=== PATIENT | male | born 1950 | race Caucasian/White ===

== ENCOUNTER 2023-04-28 09:01 | Observation (INO) ==
--- NOTE | 2023-04-28 09:08 | Emergency Department Note ---
Impression & Plan Hyponatremia, Dizziness, Leukocytosis, Chronic myeloid leukemia, Total bilirubin, elevated ED Provider Note NAME: RUTH ANN VILLALBA AGE: 72 SEX: M ARRIVES VIA: Ambulance INFORMANT: Patient ED PROVIDER(S): Romulo Vaughn MD CHIEF COMPLAINT: Dizziness PLAN: Disposition: Admit MEDICAL DECISION MAKING: The patient is a pleasant 72-year-old gentleman with a past medical history of leukemia undergoing chemotherapy who presents to the emergency department via EMS for generalized weakness and lightheadedness which has been ongoing since yesterday evening. Patient reports he had a episode of nausea and vomiting this morning as well. He denies any cough, congestion, chest pain, shortness of breath, diarrhea or urinary symptoms. On arrival emergency department the patient is fatigued appearing but no acute distress, afebrile stable vital signs. He appears clinically dry. He has no focal logic deficits. EKG without overt acute ischemia. CXR negative for acute cardiopulmonary process. WBC 12.2K with neutrophil predominance and slight left shift. H/H similar to prior. Platelets within normal limits. Chemistry without metabolic acidosis. Sodium is noted to be low at 127 with osmolality 271 and urine osmolality of 507 and urine sodium of 93 raising suspicion for possible component of SIADH. Total bilirubin 1.8 with direct bilirubin 0.3 and LFTs otherwise normal and so nonspecific. High-sensitivity troponin 6.5, within normal limits. Lipase not elevated. TSH 1.8, within normal limits. UA without convincing evidence of infection. Respiratory viral panel/[employer] was negative. CT of the abdomen pelvis was performed and was negative for acute pathology. Upon evaluation the patient reported feeling somewhat improved but still feeling dizzy. Thus, given his hyponatremia he agrees with admission at this time. Case was discussed with Dr. Lee, [facility] hospitalist, who will evaluate the patient for admission. Triage Nursing notes reviewed and agree them. Prior/outside medical records reviewed Vital Signs: reviewed Differential diagnosis: Benign positional vertigo, dehydration, hypovolemia, anemia, tumor, infection, hypoglycemia, electrolyte abnormalities, cardiac sources, intracerebral event, toxicologic, neurologic, as well as other pathologies. ER treatment provided: See below. Diagnostics interpreted by me: ECG: Normal sinus rhythm, 68 bpm, no ectopy, no overt ST elevation or depression, QTc 435, QRS 98 Cardiac Monitoring: An order for continuous cardiac monitoring was placed and demonstrated Normal sinus rhythm, 68 bpm, no ectopy. Laboratory studies: See below Imaging studies: See below Consultation(s): Case was discussed with Dr. Lee, [facility] hospitalist, who will evaluate the patient for admission. HPI: The patient is a pleasant 72-year-old gentleman with a past medical history of leukemia undergoing chemotherapy who presents to the emergency department via EMS for generalized weakness and lightheadedness which has been ongoing since yesterday evening. Patient reports he had a episode of nausea and vomiting this morning as well. He denies any cough, congestion, chest pain, shortness of breath, diarrhea or urinary symptoms. ROS: See above HPI for pertinent positives & negatives. A total of 10 systems reviewed and were otherwise negative. VITALS:See Below PHYSICAL EXAMINATION: GENERAL: Awake, alert, fatigued-appearing, in no distress HENT: Normocephalic, atraumatic. Oropharynx with dry mucous membranes and otherwise unremarkable. EYES: Normal conjunctiva. Sclera non-icteric. NECK: Supple. No nuchal rigidity. FROM. No JVD. RESPIRATORY: Clear to auscultation. CARDIAC: Regular rate, normal rhythm. Extremities warm and well perfused. Pulses equal. ABDOMEN: Soft, non-distended. No tenderness to palpation. No rebound or guarding. No masses. RECTAL: Deferred. MUSCULOSKELETAL: Chest examination reveals no tenderness. The back is sy mmetrical on inspection without obvious abnormality. There is no CVA tenderness to palpation. No joint edema. LOWER EXTREMITIES: Calves are equal size bilaterally and non-tender. No edema. No discoloration. NEURO: No sensory or motor deficits noted. 5/5 strength and SILT x 4 extremities. SKIN: No rash or jaundice noted. Romulo Vaughn MD Past Med/Surg History Medical History Chronic myeloid leukemia History of prostate cancer Hyperlipidemia Hypertension Surgical History H/O prostatectomy History of colonoscopy History of surgery on lower extremity as a child after broken bone Social History Smoking Status: Never smoker Second Hand Exposure: No; Do You Dip or Chew Tobacco: No; Tobacco Cessation Education Requested by Patient: No Hx Alcohol Use: No Hx Substance Use: No Preferred Language: Kazakh Communication Ability: Effective Putty Glazer Required: No Beliefs That Will Affect Care: None Current Living Situation: Spouse Other Information That Helps Us Care for You: No Feels Safe at Home: Yes Safety Concerns: Feels Safe At This Time Assistive Devices: Glasses Allergies Allergies Allergy/AdvReac Type Severity Reaction Status Date / Time No Known Drug Allergies Allergy Verified 11/21/22 09:48 Home Meds Home Medications Medication Instructions Recorded Confirmed ascorbic acid (vitamin C) 500 mg 500 mg PO DAILY 11/21/22 04/28/23 tablet (Vitamin C) atorvastatin 40 mg tablet 40 mg PO DAILY 11/21/22 04/28/23 calcium carbonate 600 mg calcium 600 mg PO DAILY 11/21/22 04/28/23 (1,500 mg) tablet (Calcium) cholecalciferol (vitamin D3) 25 25 mcg PO DAILY 11/21/22 04/28/23 mcg (1,000 unit) capsule (Vitamin D3) ferrous sulfate 27 mg iron tablet 27 mg PO DAILY 11/21/22 04/28/23 lisinopril 20 mg tablet 20 mg PO DAILY 11/21/22 04/28/23 multivitamin 1 tab PO DAILY 11/21/22 04/28/23 travoprost 0.004 % eye drops 1 drp ophthalmic (eye) PM 11/21/22 04/28/23 (Travatan Z) vitamin B complex 1 cap PO DAILY 11/21/22 04/28/23 acyclovir 400 mg tablet 400 mg PO BID PRN other 04/28/23 04/28/23 dexamethasone 4 mg tablet See Rx Instructions .Route .COMPLEX 04/28/23 04/28/23 ondansetron HCl 8 mg tablet See Rx Instructions .Route 04/28/23 04/28/23 .COMPLEX PRN Nausea prochlorperazine maleate 10 mg See Rx Instructions .Route 04/28/23 04/28/23 tablet .COMPLEX PRN Nausea Results & Data (ED) Vital Signs Vital Signs - 24 hr 04/28/23 09:09 04/28/23 09:12 04/28/23 09:22 Temperature 37.2 C Temperature Source Oral Pulse Rate - Lying Pulse Rate - Sitting Pulse Rate - Standing Pulse Rate 69 69 Pulse Rate [Apical] Respiratory Rate 16 Respiratory Effort / Characteristics Non-Labored Respiratory Depth Normal Blood Pressure - Lying Blood Pressure - Sitting Blood Pressure- Standing Blood Pressure 105/68 Blood Pressure [Right Arm] Blood Pressure Mean 80 Blood Pressure Mean [Right Arm] Pulse Oximetry 98 96 Oxygen Delivery Method Room Air Room Air Sepsis Recent Fever Within 48 Hours No Sepsis New/Unexplained Change in Mental Status No Sepsis Action Taken by Nursing No Action Required 04/28/23 09:45 04/28/23 10:25 04/28/23 11:00 Temperature Temperature Source Pulse Rate - Lying 78 Pulse Rate - Sitting 75 Pulse Rate - Standing 80 Pulse Rate Pulse Rate [Apical] 68 71 Respiratory Rate 16 18 Respiratory Effort / Characteristics Non-Labored Respiratory Depth Normal Blood Pressure - Lying 115/70 Blood Pressure - Sitting 116/76 Blood Pressure- Standing 111/65 Blood Pressure Blood Pressure [Right Arm] 119/71 111/65 Blood Pressure Mean Blood Pressure Mean [Right Arm] 87 80 Pulse Oximetry 94 97 Oxygen Delivery Method Room Air Sepsis Recent Fever Within 48 Hours Sepsis New/Unexplained Change in Mental Status Sepsis Action Taken by Nursing 04/28/23 13:05 Temperature Temperature Source Pulse Rate - Lying Pulse Rate - Sitting Pulse Rate - Standing Pulse Rate 74 Pulse Rate [Apical] Respiratory Rate Respiratory Effort / Characteristics Respiratory Depth Blood Pressure - Lying Blood Pressure - Sitting Blood Pressure- Standing Blood Pressure Blood Pressure [Right Arm] Blood Pressure Mean Blood Pressure Mean [Right Arm] Pulse Oximetry Oxygen Delivery Method Sepsis Recent Fever Within 48 Hours Sepsis New/Unexplained Change in Mental Status Sepsis Action Taken by Nursing Laboratory Data Attestation: I reviewed the patient's lab results. 04/28/23 09:15 04/28/23 09:15 Lab Results 04/28/23 04/28/23 04/28/23 Range/Units 09:15 09:15 09:15 WBC 12.21 H (4.8-10.8) K/ul RBC 3.86 L (4.70-6.10) M/uL Hgb 11.9 L (14.0-18.0) g/dl Hct 35.3 L (42.0-52.0) % MCV 91.5 (80.0-100.0) fL MCH 30.8 (25.0-34.0) pg MCHC 33.7 (32.0-36.0) g/dL RDW Std Deviation 65.9 H (36.4-46.3) fL RDW Coeff of Ivan 19.9 H (11.5-14.5) % Plt Count 165 (130-400) K/uL MPV 9.7 (9.4-12.4) fL Immature Gran % (Auto) 3.2 % Neut % (Auto) 84.2 % Lymph % (Auto) 8.4 % Millard % (Auto) 3.8 % Eos % (Auto) 0.2 % Baso % (Auto) 0.2 % Neut # (Auto) 10.28 H (1.40-6.50) K/uL Lymph # (Auto) 1.02 L (1.2-3.4) K/uL Millard # (Auto) 0.47 (0.11-0.59) K/uL Eos # (Auto) 0.03 (0-0.50) K/uL Baso # (Auto) 0.02 (0-0.2) K/uL Immature Gran # (Auto) 0.39 H (0.01-0.20) K/uL Absolute Nucleated RBC 0.02 (0-0.12) K/uL Nucleated RBC % (auto) 0.2 % Sodium 127 L (136-145) mmol/L Potassium 3.7 (3.5-5.1) mmol/L Chloride 92 L (98-107) mmol/L Carbon Dioxide 30 (21-32) mmol/L Anion Gap 5 (3-11) BUN 18 (6-23) mg/dl Creatinine 0.98 (0.6-1.4) mg/dl Est Cr Clr Drug Dosing Not Reportable Est GFR ( Amer) 88.3 ml/min Est GFR (Non-Af Amer) 76.2 ml/min BUN/Creatinine Ratio 18.4 (10-20) Glucose 113 H (70-99(Fasting)) mg/dl Osmolality (280-300) mOsm/kg Calcium 8.8 (8.6-10.3) mg/dl Phosphorus 3.2 (2.5-4.9) mg/dl Magnesium 1.9 (1.7-2.4) mg/dl Total Bilirubin 1.8 H (0.2-1.0) mg/dl Direct Bilirubin 0.3 H (0-0.2) mg/dl AST 13 (13-39) U/L ALT 15 (7-52) U/L Alkaline Phosphatase 58 (34-104) U/L Troponin I High Sens 6.5 (0-20) pg/ml Total Protein 6.3 (6.0-8.3) gm/dl Albumin 3.6 (3.4-5.0) gm/dl Globulin 2.7 (2.5-4.0) gm/dl Albumin/Globulin Ratio 1.3 (0.9-2) Lipase 34 (11-82) U/L TSH 1.851 (0.300-4.500) uIu/ml Urine Color Urine Appearance (Clear) Urine pH (4.5-7.5) Ur Specific Mcfarlan (1.000-1.030) Urine Protein (Negative) Urine Glucose (UA) (Negative) Urine Ketones (Negative) Urine Blood (Negative) Urine Nitrite (Negative) Urine Bilirubin (Negative) Urine Urobilinogen (Negative) Ur Leukocyte Esterase (Negative) Urine WBC (Auto) (0-5) /hpf Urine RBC (Auto) (0-4) /hpf U Hyaline Cast (Auto) (0-5) /lpf U Epithel Cells (Auto) (0-5) /lpf Urine Bacteria (Auto) (Negative) Urine Osmolality (500-800) mOsm/kg Ur Random Sodium mmol/L Adenovirus (PCR) (NotDetected) B. pertussis DNA (PCR) (NotDetected) B.parapertussis DNA PCR (NotDetected) C. pneumoniae DNA (PCR) (NotDetected) Coronavirus OC43 (PCR) (NotDetected) Coronavirus HKU1 (PCR) (NotDetected) Coronavirus 229E (PCR) (NotDetected) SARS-CoV-2 (PCR) (NotDetected) Coronavirus NL63 (PCR) (NotDetected) Human Metapneumovir PCR (NotDetected) Influenza Type A (PCR) (NotDetected) Influenza Type B (PCR) (NotDetected) M. pneumoniae (PCR) (NotDetected) Parainfluenza 1 (PCR) (NotDetected) Parainfluenza 2 (PCR) (NotDetected) Parainfluenza 3 (PCR) (NotDetected) Parainfluenza 4 (PCR) (NotDetected) RSV (PCR) (NotDetected) Entero/Rhino (PCR) (NotDetected) 04/28/23 04/28/23 04/28/23 Range/Units 10:13 10:26 10:26 WBC (4.8-10.8) K/ul RBC (4.70-6.10) M/uL Hgb (14.0-18.0) g/dl Hct (42.0-52.0) % MCV (80.0-100.0) fL MCH (25.0-34.0) pg MCHC (32.0-36.0) g/dL RDW Std Deviation (36.4-46.3) fL RDW Coeff of Ivan (11.5-14.5) % Plt Count (130-400) K/uL MPV (9.4-12.4) fL Immature Gran % (Auto) % Neut % (Auto) % Lymph % (Auto) % Millard % (Auto) % Eos % (Auto) % Baso % (Auto) % Neut # (Auto) (1.40-6.50) K/uL Lymph # (Auto) (1.2-3.4) K/uL Millard # (Auto) (0.11-0.59) K/uL Eos # (Auto) (0-0.50) K/uL Baso # (Auto) (0-0.2) K/uL Immature Gran # (Auto) (0.01-0.20) K/uL Absolute Nucleated RBC (0-0.12) K/uL Nucleated RBC % (auto) % Sodium (136-145) mmol/L Potassium (3.5-5.1) mmol/L Chloride (98-107) mmol/L Carbon Dioxide (21-32) mmol/L Anion Gap (3-11) BUN (6-23) mg/dl Creatinine (0.6-1.4) mg/dl Est Cr Clr Drug Dosing Est GFR ( Amer) ml/min Est GFR (Non-Af Amer) ml/min BUN/Creatinine Ratio (10-20) Glucose (70-99(Fasting)) mg/dl Osmolality 271 L (280-300) mOsm/kg Calcium (8.6-10.3) mg/dl Phosphorus (2.5-4.9) mg/dl Magnesium (1.7-2.4) mg/dl Total Bilirubin (0.2-1.0) mg/dl Direct Bilirubin (0-0.2) mg/dl AST (13-39) U/L ALT (7-52) U/L Alkaline Phosphatase (34-104) U/L Troponin I High Sens (0-20) pg/ml Total Protein (6.0-8.3) gm/dl Albumin (3.4-5.0) gm/dl Globulin (2.5-4.0) gm/dl Albumin/Globulin Ratio (0.9-2) Lipase (11-82) U/L TSH (0.300-4.500) uIu/ml Urine Color Yellow Urine Appearance Turbid A (Clear) Urine pH 8.0 H (4.5-7.5) Ur Specific Mcfarlan 1.015 (1.000-1.030) Urine Protein Negative (Negative) Urine Glucose (UA) Negative (Negative) Urine Ketones Negative (Negative) Urine Blood Negative (Negative) Urine Nitrite Negative (Negative) Urine Bilirubin Negative (Negative) Urine Urobilinogen Negative (Negative) Ur Leukocyte Esterase Negative (Negative) Urine WBC (Auto) 1-5 (0-5) /hpf Urine RBC (Auto) 0-4 (0-4) /hpf U Hyaline Cast (Auto) 0 (0-5) /lpf U Epithel Cells (Auto) 5-10 H (0-5) /lpf Urine Bacteria (Auto) Negative (Negative) Urine Osmolality (500-800) mOsm/kg Ur Random Sodium mmol/L Adenovirus (PCR) Not Detected (NotDetected) B. pertussis DNA (PCR) Not Detected (NotDetected) B.parapertussis DNA PCR Not Detected (NotDetected) C. pneumoniae DNA (PCR) Not Detected (NotDetected) Coronavirus OC43 (PCR) Not Detected (NotDetected) Coronavirus HKU1 (PCR) Not Detected (NotDetected) Coronavirus 229E (PCR) Not Detected (NotDetected) SARS-CoV-2 (PCR) Not Detected (NotDetected) Coronavirus NL63 (PCR) Not Detected (NotDetected) Human Metapneumovir PCR Not Detected (NotDetected) Influenza Type A (PCR) Not Detected (NotDetected) Influenza Type B (PCR) Not Detected (NotDetected) M. pneumoniae (PCR) Not Detected (NotDetected) Parainfluenza 1 (PCR) Not Detected (NotDetected) Parainfluenza 2 (PCR) Not Detected (NotDetected) Parainfluenza 3 (PCR) Not Detected (NotDetected) Parainfluenza 4 (PCR) Not Detected (NotDetected) RSV (PCR) Not Detected (NotDetected) Entero/Rhino (PCR) Not Detected (NotDetected) 04/28/23 04/28/23 Range/Units 10:26 10:26 WBC (4.8-10.8) K/ul RBC (4.70-6.10) M/uL Hgb (14.0-18.0) g/dl Hct (42.0-52.0) % MCV (80.0-100.0) fL MCH (25.0-34.0) pg MCHC (32.0-36.0) g/dL RDW Std Deviation (36.4-46.3) fL RDW Coeff of Ivan (11.5-14.5) % Plt Count (130-400) K/uL MPV (9.4-12.4) fL Immature Gran % (Auto) % Neut % (Auto) % Lymph % (Auto) % Millard % (Auto) % Eos % (Auto) % Baso % (Auto) % Neut # (Auto) (1.40-6.50) K/uL Lymph # (Auto) (1.2-3.4) K/uL Millard # (Auto) (0.11-0.59) K/uL Eos # (Auto) (0-0.50) K/uL Baso # (Auto) (0-0.2) K/uL Immature Gran # (Auto) (0.01-0.20) K/uL Absolute Nucleated RBC (0-0.12) K/uL Nucleated RBC % (auto) % Sodium (136-145) mmol/L Potassium (3.5-5.1) mmol/L Chloride (98-107) mmol/L Carbon Dioxide (21-32) mmol/L Anion Gap (3-11) BUN (6-23) mg/dl Creatinine (0.6-1.4) mg/dl Est Cr Clr Drug Dosing Est GFR ( Amer) ml/min Est GFR (Non-Af Amer) ml/min BUN/Creatinine Ratio (10-20) Glucose (70-99(Fasting)) mg/dl Osmolality (280-300) mOsm/kg Calcium (8.6-10.3) mg/dl Phosphorus (2.5-4.9) mg/dl Magnesium (1.7-2.4) mg/dl Total Bilirubin (0.2-1.0) mg/dl Direct Bilirubin (0-0.2) mg/dl AST (13-39) U/L ALT (7-52) U/L Alkaline Phosphatase (34-104) U/L Troponin I High Sens (0-20) pg/ml Total Protein (6.0-8.3) gm/dl Albumin (3.4-5.0) gm/dl Globulin (2.5-4.0) gm/dl Albumin/Globulin Ratio (0.9-2) Lipase (11-82) U/L TSH (0.300-4.500) uIu/ml Urine Color Urine Appearance (Clear) Urine pH (4.5-7.5) Ur Specific Mcfarlan (1.000-1.030) Urine Protein (Negative) Urine Glucose (UA) (Negative) Urine Ketones (Negative) Urine Blood (Negative) Urine Nitrite (Negative) Urine Bilirubin (Negative) Urine Urobilinogen (Negative) Ur Leukocyte Esterase (Negative) Urine WBC (Auto) (0-5) /hpf Urine RBC (Auto) (0-4) /hpf U Hyaline Cast (Auto) (0-5) /lpf U Epithel Cells (Auto) (0-5) /lpf Urine Bacteria (Auto) (Negative) Urine Osmolality 507 (500-800) mOsm/kg Ur Random Sodium 93 mmol/L Adenovirus (PCR) (NotDetected) B. pertussis DNA (PCR) (NotDetected) B.parapertussis DNA PCR (NotDetected) C. pneumoniae DNA (PCR) (NotDetected) Coronavirus OC43 (PCR) (NotDetected) Coronavirus HKU1 (PCR) (NotDetected) Coronavirus 229E (PCR) (NotDetected) SARS-CoV-2 (PCR) (NotDetected) Coronavirus NL63 (PCR) (NotDetected) Human Metapneumovir PCR (NotDetected) Influenza Type A (PCR) (NotDetected) Influenza Type B (PCR) (NotDetected) M. pneumoniae (PCR) (NotDetected) Parainfluenza 1 (PCR) (NotDetected) Parainfluenza 2 (PCR) (NotDetected) Parainfluenza 3 (PCR) (NotDetected) Parainfluenza 4 (PCR) (NotDetected) RSV (PCR) (NotDetected) Entero/Rhino (PCR) (NotDetected) Administered Medications Acyclovir (Acyclovir 400 Mg Tab) 400 mg PO BID REBECCA Stop: 04/30/23 20:59 Last Admin: 04/28/23 20:06 Dose: 400 mg Documented By: ENOC Enoxaparin Sodium (Enoxaparin Inj 40 Mg/0.4 Ml Syr) 40 mg SQ Q24H REBECCA Stop: 05/28/23 16:59 Last Admin: 04/28/23 18:53 Dose: 40 mg Documented By: JIM Sodium Chloride (Nss 1000ml) 1,000 mls @ 125 mls/hr IV .Q8H REBECCA Stop: 05/28/23 16:38 Last Admin: 04/28/23 17:13 Dose: 125 mls/hr Documented By: JIM Oxycodone/Acetaminophen (Oxycodone/Acetaminophen 5mg/325mg Tab) 2 tab PO Q4H PRN PRN Reason: Severe Pain (Scale 7, 8, 9,10) Stop: 05/12/23 16:38 Last Admin: 04/28/23 17:18 Dose: 2 tab Documented By: JIM Travoprost (Travoprost Z 0.004% Oph Soln 2.5 Ml Btl) 1 drops OPB PM REBECCA Stop: 05/28/23 20:59 Last Admin: 04/28/23 20:06 Dose: 1 drops Documented By: ENOC Discontinued Medications Sodium Chloride (Nss 1000ml) 1,000 mls @ 999 mls/hr IV .Q1H1M ONE Stop: 04/28/23 10:18 Last Infusion: 04/28/23 10:36 Dose: 0 mls/hr Documented By: Admin: 04/28/23 09:25 Dose: 999 mls/hr Documented By: NICK Famotidine (Pepcid 20mg Iv Push) 20 mg in 5 mls @ 2.5 mls/min IV NOW STA Stop: 04/28/23 09:57 Last Admin: 04/28/23 10:17 Dose: 2.5 mls/min Documented By: NICK Ioversol (Ioversol 350 Mg 125ml Prefilled Syringe) 94 ml IV ONCE ONE Stop: 04/28/23 11:45 Last Admin: 04/28/23 11:45 Dose: 94 ml Documented By: DEANNAK Ondansetron HCl (Ondansetron Inj 2 Mg/Ml 2 Ml Vial) 4 mg IV NOW STA Stop: 04/28/23 09:57 Last Admin: 04/28/23 10:16 Dose: 4 mg Documented By: NICK Imaging Data Radiologist's Impression: Chest X-Ray 04/28/23 09:18 XR chest 1V portable HISTORY: dizziness COMPARISON: Chest 03/18/2023. FINDINGS: There are low lung volumes. No pneumothorax. No pleural effusions. There is mild enlargement of the cardiac silhouette. This may be due to the low lung volumes. No focal lung consolidations to suggest a pneumonia. No evidence for pulmonary edema. IMPRESSION: Mild enlargement of the cardiac silhouette. This may be due to the low lung volu mes and AP portable technique. Otherwise, no acute process within the chest. ACT 112: Negative or not required by law. Electronically signed by: Samuel Webster M.D. 04/28/2023 10:00 AM Abdomen/Pelvis CT 04/28/23 11:[address] WITH IV CONTRAST CT DOSE: 1247.57 mGy.cm HISTORY: Nausea. Vomiting., dizziness, leukemia TECHNIQUE: Multiaxial CT images of the abdomen and pelvis were performed following the use of intravenous contrast. A dose lowering technique was utilized adhering to the principles of ALARA. COMPARISON STUDY: None. FINDINGS: There is a 5 mm subpleural nodule within the right middle lobe on image 20. Groundglass densities at the lung bases favor mild dependent change. Small focus of subcutaneous gas within the left lower quadrant abdominal wall favors prior medication injection. No pneumoperitoneum. No pneumatosis. No suspicious lytic or blastic osseous lesions. Severe degenerative disc disease at L4-5. Small fat-containing umbilical and supraumbilical hernias are noted. There is a 2.8 cm cyst within the left hepatic lobe. The main portal vein is patent. The gallbladder, pancreas, spleen, and adrenal glands are unremarkable. A 5 mm hypodense lesion within the right kidney is technically too small to characterize but statistically represents a cyst. Normal left kidney. No hydronephrosis. Calcified plaque within the normal caliber abdominal aorta. No retroperitoneal or pelvic lymphadenopathy. The bladder is decompressed resulting in suboptimal evaluation. However, no definite bladder wall thickening. No pelvic free fluid. Colonic diverticulosis. No evidence for acute diverticulitis. No bowel wall thickening or obstruction. Normal appendix. IMPRESSION: 1. No bowel wall thickening or obstruction. 2. Normal appendix. 3. Colonic diverticulosis. No evidence for acute diverticulitis. 4. A 5 mm right middle lobe pulmonary nodule. Please refer to the chart below for recommended follow-up. 5. Additional findings as described above. Please refer to below summary of Fleischner criteria recommendations for follow- up of incidental CT nodules (Kwesi Jenkins, Guidelines for management of small pulmonary nodules detected on CT scans: A statement from the Fleischner Society, Radiology 237: [phone].) SOLID NODULES Solitary nodule size: <6 mm * Low risk patients: no follow-up needed * high risk patients: optional CT at 12 months Solitary nodule size: 6-8 mm * Low risk patients: follow-up at 6-12 months, then consider further follow-up at 18-24 months * high risk patients: initial follow-up CT at 6-12 months and then at 18-24 months if no change Solitary nodule size: >8 mm * either low or high risk patients - consider follow-up CT at 3 months, and/or CT-PET, and/or biopsy Multiple nodules size: <6 mm * Low risk patients: no routine follow-up * high risk patients: optional CT at 12 months Multiple nodules size: 6-8 mm * Low risk patients: follow-up at 3-6 months, then consider further follow-up at 18-24 months * high risk patients: follow-up at 3-6 months, then at 18-24 months if no change Multiple nodules size: >8 mm * Low risk patients: follow-up at 3-6 months, then consider further follow-up at 18-24 months * high risk patients: follow-up at 3-6 months, then at 18-24 months if no change Note: newly detected indeterminate nodule in persons 35 years of age or older. * Low risk patients: minimal or absent history of smoking and/or other known risk factors * high risk patients: history of smoking or of other known risk factors (e.g. first degree relative with lung cancer, or exposure to asbestos, radon, uranium) * if a nodule up to 8 mm is partly solid or is ground glass further follow-up is required after 24 months to exclude possible slow growing adenocarcinoma (TONY) SUBSOLID NODULES Solitary pure ground-glass nodule * nodule size <6 mm - no CT follow-up required * nodule size >=6 mm - follow-up CT at 6-12 months, then every 2 years until 5 years Solitary part-solid nodule * nodule size <6 mm - no CT follow-up required * nodule size >=6 mm - follow-up CT at 3-6 months. If unchanged, and solid component remains <6 mm, then annual follow-up for 5 years Multiple subsolid nodules * nodule size <6 mm - follow-up CT at 3-6 months, consider further follow-up at 2 and 4 years if stable * nodule size >=6 mm - follow-up CT at 3-6 months, subsequent management based on the most suspicious nodule(s) ACT 112: Positive. There are findings on this exam that require communication between the performing entity and the patient following Patient Test Result Information Act ([place] Act 112) guidelines. Electronically signed by: Samuel Webster M.D. 04/28/2023 11:58 AM Discharge Plan Visit Data Chief Complaint: Dizziness ED Provider: Romulo Vaughn Discharge Problem: Hyponatremia, Dizziness, Leukocytosis, Chronic myeloid leukemia, Total bilirubin, elevated Patient Disposition: Admitted As Inpatient Discharge Instructions Interventions: ED Discharge Assessment Last Done: 04/28/23 16:39
[2023-04-28] MEDS ORDERED: SODIUM CHLORIDE 0.9% 1000ML 1,000 ML IV ONE (09:18)
[2023-04-28 09:36] LABS: Basophils # (auto) 0.02 K/uL (0-0.2); Basophils % (auto) 0.2 %; Eosinophils # (auto) 0.03 K/uL (0-0.50); Eosinophils % (auto) 0.2 %; Hematocrit (blood only) 35.3 % (42.0-52.0); Hemoglobin 11.9 g/dl (14.0-18.0); Immature Granulocytes # (auto) 0.39 K/uL (0.01-0.20); Immature Granulocytes % (auto) 3.2 %; Lymphocytes # (auto) 1.02 K/uL (1.2-3.4); Lymphocytes % (auto) 8.4 %; Mean Corpuscular Hemoglobin 30.8 pg (25.0-34.0); Mean Corpuscular Hgb Conc 33.7 g/dL (32.0-36.0); Mean Corpuscular Volume 91.5 fL (80.0-100.0); Mean Platelet Volume 9.7 fL (9.4-12.4); Monocytes # (auto) 0.47 K/uL (0.11-0.59); Monocytes % (auto) 3.8 %; Neutrophils # (auto) 10.28 K/uL (1.40-6.50); Neutrophils % (auto) 84.2 %; Nucleated RBC # (auto) 0.02 K/uL (0-0.12); Nucleated RBC % (auto) 0.2 %; Platelet Count 165 K/uL (130-400); RDW Coefficient of Variation 19.9 % (11.5-14.5); RDW Standard Deviation 65.9 fL (36.4-46.3); Red Blood Count 3.86 M/uL (4.70-6.10); White Blood Count 12.21 K/ul (4.8-10.8)
[2023-04-28] MEDS ORDERED: ONDANSETRON INJ 2 MG/ML 2 ML VIAL IV STA (09:56)
[2023-04-28] MEDS ORDERED: FAMOTIDINE 20MG IV PUSH 20 MG/5 ML SYR IV STA (09:56)
--- NOTE | 2023-04-28 10:02 | XRay Report ---
XR chest 1V portable HISTORY: dizziness COMPARISON: Chest 03/18/2023. FINDINGS: There are low lung volumes. No pneumothorax. No pleural effusions. There is mild enlargemen t of the cardiac silhouette. This may be due to the low lung volumes. No focal lung consolidations to suggest a pneumonia. No evidence for pulmonary edema. IMPRESSION: Mild enlargement of the cardiac silhouette. This may be due to the low lung volumes and AP portable t echnique. Otherwise, no acute process within the chest. ACT 112: Negative or not required by law. Electronically signed by: Samuel Webster M.D. 04/28/2023 10:00 AM
[2023-04-28 10:03] LABS: Alanine Aminotransferase 15 U/L (7-52); Albumin Globulin Ratio 1.3 (0.9-2); Albumin Level 3.6 gm/dl (3.4-5.0); Alkaline Phosphatase 58 U/L (34-104); Anion Gap 5 (3-11); Aspartate Aminotransferase 13 U/L (13-39); BUN Creatinine Ratio 18.4 (10-20); Bilirubin,Total 1.8 mg/dl (0.2-1.0); Blood Urea Nitrogen 18 mg/dl (6-23); Calcium 8.8 mg/dl (8.6-10.3); Carbon Dioxide 30 mmol/L (21-32); Chloride 92 mmol/L (98-107); Est GFR (African American) 88.3 ml/min; Est GFR (Non-African American) 76.2 ml/min; Globulin 2.7 gm/dl (2.5-4.0); Glucose 113 mg/dl (70-99(Fasting)); Lipase 34 U/L (11-82); Magnesium 1.9 mg/dl (1.7-2.4); Phosphorus 3.2 mg/dl (2.5-4.9); Potassium 3.7 mmol/L (3.5-5.1); Sodium 127 mmol/L (136-145); Total Protein 6.3 gm/dl (6.0-8.3)
[2023-04-28 10:10] LABS: Troponin I High Sensitivity 6.5 pg/ml (0-20)
[2023-04-28 10:46] LABS: Appearance Urine Turbid (Clear); Bacteria Urine Automated Negative (Negative); Bilirubin Urine Negative (Negative); Blood Urine Negative (Negative); Cast Urine Automated 0 /lpf (0-5); Color Urine Yellow; Glucose Urine UA Negative (Negative); Ketones Urine Negative (Negative); Leukocyte Esterase Urine Negative (Negative); Nitrite Urine Negative (Negative); Protein Urine Negative (Negative); RBC Urine Automated 0-4 /hpf (0-4); Specific Gravity Urine 1.015 (1.000-1.030); Urobilinogen Urine Negative (Negative)
[2023-04-28 11:43] LABS: Adenovirus PCR Not Detected (NotDetected); Bordetella parapertussis PCR Not Detected (NotDetected); Bordetella pertussis PCR Not Detected (NotDetected); Chlamydia pneumoniae PCR Not Detected (NotDetected); Coronavirus 229E PCR Not Detected (NotDetected); Coronavirus CoV-2 (COVID19)PCR Not Detected (NotDetected); Coronavirus HKU1 PCR Not Detected (NotDetected); Coronavirus NL63 PCR Not Detected (NotDetected); Coronavirus OC43PCR Not Detected (NotDetected); Human Metapneumovirus PCR Not Detected (NotDetected); Influenza A PCR Not Detected (NotDetected); Influenza B PCR Not Detected (NotDetected); Mycoplasma pneumoniae PCR Not Detected (NotDetected); Parainfluenza Virus 1 PCR Not Detected (NotDetected); Parainfluenza Virus 2 PCR Not Detected (NotDetected); Parainfluenza Virus 3 PCR Not Detected (NotDetected); Parainfluenza Virus 4 PCR Not Detected (NotDetected); Respiratory Syncytial VirusPCR Not Detected (NotDetected); Rhinovirus/Enterovirus PCR Not Detected (NotDetected)
[2023-04-28] MEDS ORDERED: IOVERSOL 350 MG 125mL Prefilled Syringe IV ONE (11:44)
--- NOTE | 2023-04-28 12:01 | CT Scan Report ---
ABDOMEN AND PELVIS CT WITH IV CONTRAST CT DOSE: 1247.57 mGy.cm HISTORY: Nausea. Vomiting., dizziness, leukemia TECHNIQUE: Multiaxial CT images of the abdomen and pelvis were performed following the use of intrave nous contrast. A dose lowering technique was utilized adhering to the principles of ALARA. COMPARISON STUDY: None. FINDINGS: There is a 5 mm subpleural nodule within the right middle lobe on image 20. Groundglass den sities at the lung bases favor mild dependent change. Small focus of subcutaneous gas within the left lower quadrant abdominal wall favors prior medication injection. No pneumoperitoneum. No pneumatosis . No suspicious lytic or blastic osseous lesions. Severe degenerative disc disease at L4-5. Small fat -containing umbilical and supraumbilical hernias are noted. There is a 2.8 cm cyst within the left he patic lobe. The main portal vein is patent. The gallbladder, pancreas, spleen, and adrenal glands are unremarkable. A 5 mm hypodense lesion within the right kidney is technically too small to characteri ze but statistically represents a cyst. Normal left kidney. No hydronephrosis. Calcified plaque withi n the normal caliber abdominal aorta. No retroperitoneal or pelvic lymphadenopathy. The bladder is de compressed resulting in suboptimal evaluation. However, no definite bladder wall thickening. No pelvi c free fluid. Colonic diverticulosis. No evidence for acute diverticulitis. No bowel wall thickening or obstruction. Normal appendix. IMPRESSION: 1. No bowel wall thickening or obstruction. 2. Normal appendix. 3. Colonic diverticulosis. No evidence for acute diverticulitis. 4. A 5 mm right middle lobe pulmonary nodule. Please refer to the chart below for recommended follow- up. 5. Additional findings as described above. Please refer to below summary of Fleischner criteria recommendations for follow-up of incidental CT n odules (Kwesi Jenkins, Guidelines for management of small pulmonary nodules detected on CT scans: A sta tement from the Fleischner Society, Radiology 237: [phone].) SOLID NODULES Solitary nodule size: <6 mm * Low risk patients: no follow-up needed * high risk patients: optional CT at 12 months Solitary nodule size: 6-8 mm * Low risk patients: follow-up at 6-12 months, then consider further follow-up at 18-24 months * high risk patients: initial follow-up CT at 6-12 months and then at 18-24 months if no change Solitary nodule size: >8 mm * either low or high risk patients - consider follow-up CT at 3 months, and/or CT-PET, and/or biopsy Multiple nodules size: <6 mm * Low risk patients: no routine follow-up * high risk patients: optional CT at 12 months Multiple nodules size: 6-8 mm * Low risk patients: follow-up at 3-6 months, then consider further follow-up at 18-24 months * high risk patients: follow-up at 3-6 months, then at 18-24 months if no change Multiple nodules size: >8 mm * Low risk patients: follow-up at 3-6 months, then consider further follow-up at 18-24 months * high risk patients: follow-up at 3-6 months, then at 18-24 months if no change Note: newly detected indeterminate nodule in persons 35 years of age or older. * Low risk patients: minimal or absent history of smoking and/or other known risk factors * high risk patients: history of smoking or of other known risk factors (e.g. first degree relative with lung cancer, or exposure to asbestos, radon, uranium) * if a nodule up to 8 mm is partly solid or is ground glass further follow-up is required after 24 m onths to exclude possible slow growing adenocarcinoma (TONY) SUBSOLID NODULES Solitary pure ground-glass nodule * nodule size <6 mm - no CT follow-up required * nodule size >=6 mm - follow-up CT at 6-12 months, then every 2 years until 5 years Solitary part-solid nodule * nodule size <6 mm - no CT follow-up required * nodule size >=6 mm - follow-up CT at 3-6 months. If unchanged, and solid component remains <6 mm, then annual follow-up for 5 years Multiple subsolid nodules * nodule size <6 mm - follow-up CT at 3-6 months, consider further follow-up at 2 and 4 years if sta ble * nodule size >=6 mm - follow-up CT at 3-6 months, subsequent management based on the most suspiciou s nodule(s) ACT 112: Positive. There are findings on this exam that require communication between the performing entity and the patient following Patient Test Result Information Act ([place] Act 112) guidelines. Electronically signed by: Samuel Webster M.D. 04/28/2023 11:58 AM
[2023-04-28 12:07] LABS: Bilirubin Direct 0.3 mg/dl (0-0.2)
--- NOTE | 2023-04-28 13:46 | History & Physical Report ---
Date of Service April 28, 2023 Assessment & Plan (1) Dizziness: Plan: doubtful this would be caused by a Na of 127 suspect this is a side effect of chemo, pt and report it typically occurs a few days after chemo meclizine prn, supportive care pt's primary chopping machine operator is consulted (2) Hyponatremia: Plan: Na 127, slightly dry on exam, poor po intake continue IVF until pt is taking in adequate po daily bmp (3) Leukocytosis: Plan: I do not think this is due to chemo, typically with chemo I see leukopenia not leukocytosis. There is a left shift but no e/o infection on workup thus far including UA, CXR, and CT A/P consider CT chest remains afebrile on acyclovir for prophylaxis while immunocompromised d/t CML/chemo, pt has been taking daily instead of BID as prescribed so it could be ineffective. pt's primary chopping machine operator is consulted (4) Total bilirubin, elevated: Plan: unclear etiology no reports of abdominal pain other than at injection sites LFTs wnl CT A/P neg for acute pathology monitor for now (5) Hypochloremia: Plan: as above under hyponatremia (6) Hypertension: Plan: currently well controlled continue lisinopril (7) Hyperlipidemia: Plan: continue statin therapy, no indication to check a lipid panel at this time (8) Chronic myeloid leukemia: Plan: antiemetics, analgesia rest per oncology Present on Admission?: Yes History of Present Illness Chief Complaint: dizziness Primary Care Provider: MAI Aguilar Mr. 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 He presented due to dizziness and malaise. He is found to have leukocytosis with a left shift (no clear source of infection), and hyponatremia. History is per patient and at bedside. Last chemotherapy treatment was Saturday. Pt typically develops symptoms about 3 days after chemo. The symptoms he is experiencing now are consistent with post chemo, but more severe and occurring sooner than usual. Symptoms consist of dizziness, diffuse aches and pains throughout his joints and muscles, fatigue, malaise, generalized weakness, and feeling "foggy headed." He did have chills last night, and today vomited up his antihypertensives. Appetite remained good up until yesterday, he hasn't eaten anything since then. Dizziness was worse today, to the point he went down on both knees in the bathroom causing his to be alarmed. He further endorses neck pain and stiffness. He denies photophobia, fever, CP, sob, cough, congestion, sore throat, abdominal pain (other than from injections), diarrhea, and dysuria. He has not had n/v other than the one episode with his morning meds today. ED course: VSS b/w notable for wbc 12.21, h/h 11.9/35.3, Na 127, Cl 92, serum osm 271, TB 1.8. TSH, lipase, Mg, and Phos wnl. Respiratory pathogen panel is negative. UA + turbid but otherwise negative. CT A/P with contrast neg for acute pathology, notable for 2.8 cm cyst in the left hepatic lobe Pt was given IVF, zofran, and Famotidine. Admitted to hospitalist cody. Allergies Allergy/AdvReac Type Severity Reaction Status Date / Time No Known Drug Allergies Allergy Verified 11/21/22 09:48 Home Medications Medication Instructions Recorded Confirmed Type ascorbic acid (vitamin C) 500 mg 500 mg PO DAILY 11/21/22 04/28/23 History tablet (Vitamin C) atorvastatin 40 mg tablet 40 mg PO DAILY 11/21/22 04/28/23 History calcium carbonate 600 mg calcium 600 mg PO DAILY 11/21/22 04/28/23 History (1,500 mg) tablet (Calcium) cholecalciferol (vitamin D3) 25 25 mcg PO DAILY 11/21/22 04/28/23 History mcg (1,000 unit) capsule (Vitamin D3) ferrous sulfate 27 mg iron tablet 27 mg PO DAILY 11/21/22 04/28/23 History lisinopril 20 mg tablet 20 mg PO DAILY 11/21/22 04/28/23 History multivitamin 1 tab PO DAILY 11/21/22 04/28/23 History travoprost 0.004 % eye drops 1 drp ophthalmic (eye) PM 11/21/22 04/28/23 History (Travatan Z) vitamin B complex 1 cap PO DAILY 11/21/22 04/28/23 History acyclovir 400 mg tablet 400 mg PO BID PRN other 04/28/23 04/28/23 History dexamethasone 4 mg tablet See Rx Instructions .Route .COMPLEX 04/28/23 04/28/23 History ondansetron HCl 8 mg tablet See Rx Instructions .Route 04/28/23 04/28/23 History .COMPLEX PRN Nausea prochlorperazine maleate 10 mg See Rx Instructions .Route 04/28/23 04/28/23 History tablet .COMPLEX PRN Nausea Past Med/Surg History Medical History (Updated 04/28/23 @ 14:20 by Aubrie Lee MD) Chronic myeloid leukemia History of prostate cancer Hyperlipidemia Hypertension Surgical History H/O prostatectomy History of colonoscopy History of surgery on lower extremity as a child after broken bone Social History Smoking Status: Never smoker Hx Alcohol Use: No Hx Substance Use: No Preferred Language: [place] Weatherization Crew Leader Required: No Beliefs That Will Affect Care: None Current Living Situation: Spouse Feels Safe at Home: Yes Review of Systems Review of Systems: All systems reviewed & are unremarkable except as noted in HPI & below Physical Exam Physical Exam: General: NAD, non-toxic appearing, sleepy Head: NC AT Eyes: anicteric sclera, no conjunctival injection Nose: nares patent Mouth: dry Neck: supple, trachea midline CV: RRR S1 S2 Pulm: CTA b/l Abd/GI: + BS, soft, NT, ND, no guarding : no pratt Ext: no pretibial edema MSK: normal bulk and tone Neuro: somnolent, oriented, moving all 4 extremities symmetrically, no focal deficits Psych: pleasant mood and affect Skin: visible skin is warm, dry, and without rash. Pt not fully undressed for exam. Results & Data Results & Data Vital Signs (Past 12 Hours) Vital Signs Temp Pulse Pulse Resp BP BP Pulse Ox 04/28/23 13:05 74 04/28/23 11:00 71 18 111/65 97 04/28/23 09:45 68 16 119/71 94 04/28/23 09:22 96 04/28/23 09:12 69 04/28/23 09:09 37.2 C 69 16 105/68 98 O2 Del Method 04/28/23 13:05 04/28/23 11:00 04/28/23 09:45 Room Air 04/28/23 09:22 Room Air 04/28/23 09:12 04/28/23 09:09 Room Air Laboratory Results Short CBC 04/28/23 Range/Units 09:15 WBC 12.21 H (4.8-10.8) K/ul Hgb 11.9 L (14.0-18.0) g/dl Hct 35.3 L (42.0-52.0) % Plt Count 165 (130-400) K/uL BMP 04/28/23 09:15 Sodium 127 L Potassium 3.7 Chloride 92 L Carbon Dioxide 30 BUN 18 Creatinine 0.98 Glucose 113 H Calcium 8.8 Liver Function 04/28/23 Range/Units 09:15 Total Bilirubin 1.8 H (0.2-1.0) mg/dl Direct Bilirubin 0.3 H (0-0.2) mg/dl AST 13 (13-39) U/L ALT 15 (7-52) U/L Alkaline Phosphatase 58 (34-104) U/L Albumin 3.6 (3.4-5.0) gm/dl Urine 04/28/23 Range/Units 10:26 Urine Color Yellow Urine Appearance Turbid A (Clear) Urine pH 8.0 H (4.5-7.5) Ur Specific [place] 1.015 (1.000-1.030) Urine Protein Negative (Negative) Urine Glucose (UA) Negative (Negative) Diagnostic Findings Chest X-Ray 04/28/23 09:18 XR chest 1V portable HISTORY: dizziness COMPARISON: Chest 03/18/2023. FINDINGS: There are low lung volumes. No pneumothorax. No pleural effusions. There is mild enlargement of the cardiac silhouette. This may be due to the low lung volumes. No focal lung consolidations to suggest a pneumonia. No evidence for pulmonary edema. IMPRESSION: Mild enlargement of the cardiac silhouette. This may be due to the low lung volumes and AP portable technique. Otherwise, no acute process within the chest. Electronically signed by: Samuel Webster M.D. 04/28/2023 10:00 AM Abdomen/Pelvis CT 04/28/23 11:[address] WITH IV CONTRAST CT DOSE: 1247.57 mGy.cm HISTORY: Nausea. Vomiting., dizziness, leukemia TECHNIQUE: Multiaxial CT images of the abdomen and pelvis were performed foll owing the use of intravenous contrast. A dose lowering technique was utilized adhering to the principles of ALARA. COMPARISON STUDY: None. FINDINGS: There is a 5 mm subpleural nodule within the right middle lobe on image 20. Groundglass densities at the lung bases favor mild dependent change. Small focus of subcutaneous gas within the left lower quadrant abdominal wall favors prior medication injection. No pneumoperitoneum. No pneumatosis. No suspicious lytic or blastic osseous lesions. Severe degenerative disc disease at L4-5. Small fat-containing umbilical and supraumbilical hernias are noted. There is a 2.8 cm cyst within the left hepatic lobe. The main portal vein is patent. The gallbladder, pancreas, spleen, and adrenal glands are unremarkable. A 5 mm hypodense lesion within the right kidney is technically too small to characterize but statistically represents a cyst. Normal left kidney. No hydronephrosis. Calcified plaque within the normal caliber abdominal aorta. No retroperitoneal or pelvic lymphadenopathy. The bladder is decompressed resulting in suboptimal evaluation. However, no definite bladder wall thickening. No pelvic free fluid. Colonic diverticulosis. No evidence for acute diverticulitis. No bowel wall thickening or obstruction. Normal appendix. IMPRESSION: 1. No bowel wall thickening or obstruction. 2. Normal appendix. 3. Colonic diverticulosis. No evidence for acute diverticulitis. 4. A 5 mm right middle lobe pulmonary nodule. Please refer to the chart below for recommended follow-up. 5. Additional findings as described above. Please refer to below summary of Fleischner criteria recommendations for follow- up of incidental CT nodules (Kwesi Jenkins, Guidelines for management of small pulmonary nodules detected on CT scans: A statement from the Fleischner Society, Radiology 237: [phone].) SOLID NODULES Solitary nodule size: <6 mm * Low risk patients: no follow-up needed * high risk patients: optional CT at 12 months Solitary nodule size: 6-8 mm * Low risk patients: follow-up at 6-12 months, then consider further follow-up at 18-24 months * high risk patients: initial follow-up CT at 6-12 months and then at 18-24 months if no change Solitary nodule size: >8 mm * either low or high risk patients - consider follow-up CT at 3 months, and/or CT-PET, and/or biopsy Multiple nodules size: <6 mm * Low risk patients: no routine follow-up * high risk patients: optional CT at 12 months Multiple nodules size: 6-8 mm * Low risk patients: follow-up at 3-6 months, then consider further follow-up at 18-24 months * high risk patients: follow-up at 3-6 months, then at 18-24 months if no change Multiple nodules size: >8 mm * Low risk patients: follow-up at 3-6 months, then consider further follow-up at 18-24 months * high risk patients: follow-up at 3-6 months, then at 18-24 months if no change Note: newly detected indeterminate nodule in persons 35 years of age or older. * Low risk patients: minimal or absent history of smoking and/or other known risk factors * high risk patients: history of smoking or of other known risk factors (e.g. first degree relative with lung cancer, or exposure to asbestos, radon, uranium) * if a nodule up to 8 mm is partly solid or is ground glass further follow-up is required after 24 months to exclude possible slow growing adenocarcinoma (TONY) SUBSOLID NODULES Solitary pure ground-glass nodule * nodule size <6 mm - no CT follow-up required * nodule size >=6 mm - follow-up CT at 6-12 months, then every 2 years until 5 years Solitary part-solid nodule * nodule size <6 mm - no CT follow-up required * nodule size >=6 mm - follow-up CT at 3-6 months. If unchanged, and solid component remains <6 mm, then annual follow-up for 5 years Multiple subsolid nodules * nodule size <6 mm - follow-up CT at 3-6 months, consider further follow-up at 2 and 4 years if stable * nodule size >=6 mm - follow-up CT at 3-6 months, subsequent management based on the most suspicious nodule(s) ACT 112: Positive. There are findings on this exam that require communication between the performing entity and the patient following Patient Test Result Inf ormation Act ([place] Act 112) guidelines Electronically signed by: Samuel Webster M.D. 04/28/2023 11:58 AM Medications Administered NS, Ondansetron, Famotidine Code Status & VTE Plan Code Status Full
[2023-04-28] MEDS ORDERED: ALUMINUM/MAGNESIUM SUSP 30 ML UDC PO PRN (16:39)
[2023-04-28] MEDS ORDERED: oxyCODONE/ACETAMINOPHEN 5mg/325mg TAB PO PRN (16:39)
[2023-04-28] MEDS ORDERED: POLYETHYLENE (MIRALAX) 17 GM PACK PO PRN (16:39)
[2023-04-28] MEDS ORDERED: ONDANSETRON INJ 2 MG/ML 2 ML VIAL IV PRN (16:39)
[2023-04-28] MEDS ORDERED: MAGNESIUM HYDROXIDE SUSP 30 ML UDC PO PRN (16:39)
[2023-04-28] MEDS ORDERED: ACETAMINOPHEN 325 MG TAB PO PRN (16:39)
[2023-04-28] MEDS ORDERED: ENOXAPARIN INJ 40 MG/0.4 ML SYR SQ SCH (17:00)
[2023-04-28] MEDS: SODIUM CHLORIDE 0.9% 1000ML 1,000 ML IV SCH (17:13)
[2023-04-28] MEDS: oxyCODONE/ACETAMINOPHEN 5mg/325mg TAB PO PRN (17:18)
[2023-04-28] MEDS: ACYCLOVIR 400 MG TAB PO SCH (20:06)
[2023-04-28] MEDS ORDERED: TRAVOPROST Z 0.004% OPH SOLN 2.5 ML BTL OPB SCH (21:00)
[2023-04-29] MEDS: SODIUM CHLORIDE 0.9% 1000ML 1,000 ML IV SCH ×2 (01:07→08:14)
[2023-04-29] MEDS: oxyCODONE/ACETAMINOPHEN 5mg/325mg TAB PO PRN (03:29)
[2023-04-29 07:26] LABS: Hematocrit (blood only) 31.8 % (42.0-52.0); Hemoglobin 10.7 g/dl (14.0-18.0); Mean Corpuscular Hemoglobin 30.7 pg (25.0-34.0); Mean Corpuscular Hgb Conc 33.6 g/dL (32.0-36.0); Mean Corpuscular Volume 91.4 fL (80.0-100.0); Mean Platelet Volume 9.2 fL (9.4-12.4); Platelet Count 149 K/uL (130-400); RDW Standard Deviation 66.9 fL (36.4-46.3); Red Blood Count 3.48 M/uL (4.70-6.10); White Blood Count 7.55 K/ul (4.8-10.8)
[2023-04-29 07:54] LABS: Albumin Globulin Ratio 1.2 (0.9-2); Albumin Level 3.1 gm/dl (3.4-5.0); BUN Creatinine Ratio 17.6 (10-20); Calcium 8.4 mg/dl (8.6-10.3); Creatinine Clr Calc Pharmacy 83.3 ml/min; Est GFR (African American) 100.2 ml/min; Est GFR (Non-African American) 86.4 ml/min; Globulin 2.5 gm/dl (2.5-4.0); Potassium 4.3 mmol/L (3.5-5.1); Total Protein 5.6 gm/dl (6.0-8.3)
--- NOTE | 2023-04-29 07:59 | Consultation ---
Date of Consultation April 29, 2023 Assessment & Plan (1) MDS (myelodysplastic syndrome): Patient's primary diagnosis is myelodysplastic syndrome rather than CML and in general he has been doing quite well with stable platelet counts and no clear evolution to acute leukemia. He is potentially scheduled for stem cell transplantation with an allogeneic transplant in May through the [place] team (2) Dizziness: Some nonspecific symptoms that actually mimic those he has had with previous chemotherapy cycles though to a greater degree. Initial leukocytosis is quickly stabilized as has his hyperbilirubinemia and other than a mild hyponatremia which itself is also improved, no major findings on laboratory or x-ray of immediate concern. Primary differential diagnosis would be of simple chemotherapy toxicity versus a viral syndrome, patient is not neutropenic and not having ongoing fevers so it seems that a bacterial infection is unlikely Plan We will cancel the chemotherapy session scheduled for today and tomorrow and continue with supportive care. If his symptoms stabilize, he is taking p.o. well, and nausea can be easily controlled with oral medications we can can consider discharge in the near future History of Present Illness Attending Physician: Elba Sheffield MD History of Present Illness Please note that this is a consultation constructed purely from review of the electronic database. I did speak with the patient prior to his admission yesterday but I am unable to directly examine him. I am well familiar with the patient from my care for him at [facility] where I did do a physical examination last week. I reviewed both the records from the [facility] and the current admission records which seem to be an accurate source of relevant information but I am completely reliant on that for my initial conclusions and perspectives. If there are urgent concerns regarding the need for more direct [id number] review, please contact me and we can discuss options. I will be back onsite tomorrow with a direct examination to be performed by me at that time. The evaluation is consultative in nature and all patient care and treatment decisions can either be accepted or rejected by the patient's primary hospital- based treating physician using their own independent medical judgment for the patient. Patient has myelodysplastic syndrome with evolving blasts originally diagnosed in July, who has been on azacitidine since November and at time of following platelet counts. He actually tolerated that quite well with improvement in platelet counts and on that basis and his generally good health he is scheduled for an allogeneic transplant in May at [place]. He was receiving his usual azacitidine starting Saturday of last week completing 5 doses by Saturday with 2 additional scheduled doses today and tomorrow but is admitted over the weekend with dizziness, diffuse muscular aches, some nausea and chills with at least 1 episode of vomiting. He has also had some low-grade fever Allergies Allergy/AdvReac Type Severity Reaction Status Date / Time No Known Drug Allergies Allergy Verified 11/21/22 09:48 Home Medications Medication Instructions Recorded Confirmed Type ascorbic acid (vitamin C) 500 mg 500 mg PO DAILY 11/21/22 04/28/23 History tablet (Vitamin C) atorvastatin 40 mg tablet 40 mg PO DAILY 11/21/22 04/28/23 History calcium carbonate 600 mg calcium 600 mg PO DAILY 11/21/22 04/28/23 History (1,500 mg) tablet (Calcium) cholecalciferol (vitamin D3) 25 25 mcg PO DAILY 11/21/22 04/28/23 History mcg (1,000 unit) capsule (Vitamin D3) ferrous sulfate 27 mg iron tablet 27 mg PO DAILY 11/21/22 04/28/23 History lisinopril 20 mg tablet 20 mg PO DAILY 11/21/22 04/28/23 History multivitamin 1 tab PO DAILY 11/21/22 04/28/23 History travoprost 0.004 % eye drops 1 drp ophthalmic (eye) PM 11/21/22 04/28/23 History (Travatan Z) vitamin B complex 1 cap PO DAILY 11/21/22 04/28/23 History acyclovir 400 mg tablet 400 mg PO BID PRN other 04/28/23 04/28/23 History dexamethasone 4 mg tablet See Rx Instructions .Route .COMPLEX 04/28/23 04/28/23 History ondansetron HCl 8 mg tablet See Rx Instructions .Route 04/28/23 04/28/23 History .COMPLEX PRN Nausea prochlorperazine maleate 10 mg See Rx Instructions .Route 04/28/23 04/28/23 History tablet .COMPLEX PRN Nausea Patient History Medical History Chronic myeloid leukemia History of prostate cancer Hyperlipidemia Hypertension Surgical History H/O prostatectomy History of colonoscopy History of surgery on lower extremity as a child after broken bone Social History Smoking Status: Never smoker Second Hand Exposure: No; Do You Dip or Chew Tobacco: No; Tobacco Cessation Education Requested by Patient: No Hx Alcohol Use: No Hx Substance Use: No Preferred Language: Chinese Communication Ability: Effective Partner Alliance Manager Required: No Beliefs That Will Affect Care: None Current Living Situation: Spouse Other Information That Helps Us Care for You: No Feels Safe at Home: Yes Safety Concerns: Feels Safe At This Time Assistive Devices: Glasses Physical Exam Physical Exam: Patient is currently afebrile and has been so since admission, his vital signs are stable. By description his exam is relatively unremarkable. Other than some sleepiness neurologic exam was unremarkable as were his lung cardiac and abdominal exams Results & Data Vital Signs (Past 12 Hours) Vital Signs Temp Pulse Resp BP BP Pulse Ox O2 Del Method 04/29/23 07:05 36.4 C L 57 L 18 137/84 97 Room Air 04/28/23 20:14 36.5 C 64 16 105/68 97 Room Air Laboratory Results Laboratory Results - last 24 hr 04/28/23 04/28/23 04/28/23 09:15 09:15 09:15 WBC 12.21 H RBC 3.86 L Hgb 11.9 L Hct 35.3 L MCV 91.5 MCH 30.8 MCHC 33.7 RDW Std Deviation 65.9 H RDW Coeff of Ivan 19.9 H Plt Count 165 MPV 9.7 Immature Gran % (Auto) 3.2 Neut % (Auto) 84.2 Lymph % (Auto) 8.4 [place] % (Auto) 3.8 Eos % (Auto) 0.2 Baso % (Auto) 0.2 Neut # (Auto) 10.28 H Lymph # (Auto) 1.02 L [place] # (Auto) 0.47 Eos # (Auto) 0.03 Baso # (Auto) 0.02 Immature Gran # (Auto) 0.39 H Absolute Nucleated RBC 0.02 Nucleated RBC % (auto) 0.2 Sodium 127 L Potassium 3.7 Chloride 92 L Carbon Dioxide 30 Anion Gap 5 BUN 18 Creatinine 0.98 Est Cr Clr Drug Dosing Not Reportable Est GFR ( Amer) 88.3 Est GFR (Non-Af Amer) 76.2 BUN/Creatinine Ratio 18.4 Glucose 113 H Osmolality Calcium 8.8 Phosphorus 3.2 Magnesium 1.9 Total Bilirubin 1.8 H Direct Bilirubin 0.3 H AST 13 ALT 15 Alkaline Phosphatase 58 Troponin I High Sens 6.5 Total Protein 6.3 Albumin 3.6 Globulin 2.7 Albumin/Globulin Ratio 1.3 Lipase 34 TSH 1.851 Urine Color Urine Appearance Urine pH Ur Specific Roby Urine Protein Urine Glucose (UA) Urine Ketones Urine Blood Urine Nitrite Urine Bilirubin Urine Urobilinogen Ur Leukocyte Esterase Urine WBC (Auto) Urine RBC (Auto) U Hyaline Cast (Auto) U Epithel Cells (Auto) Urine Bacteria (Auto) Urine Osmolality Ur Random Sodium Adenovirus (PCR) B. pertussis DNA (PCR) B.parapertussis DNA PCR C. pneumoniae DNA (PCR) Coronavirus OC43 (PCR) Coronavirus HKU1 (PCR) Coronavirus 229E (PCR) SARS-CoV-2 (PCR) Coronavirus NL63 (PCR) Human Metapneumovir PCR Influenza Type A (PCR) Influenza Type B (PCR) M. pneumoniae (PCR) Parainfluenza 1 (PCR) Parainfluenza 2 (PCR) Parainfluenza 3 (PCR) Parainfluenza 4 (PCR) RSV (PCR) Entero/Rhino (PCR) 04/28/23 04/28/23 04/28/23 10:13 10:26 10:26 WBC RBC Hgb Hct MCV MCH MCHC RDW Std Deviation RDW Coeff of Ivan Plt Count MPV Immature Gran % (Auto) Neut % (Auto) Lymph % (Auto) [place] % (Auto) Eos % (Auto) Baso % (Auto) Neut # (Auto) Lymph # (Auto) [place] # (Auto) Eos # (Auto) Baso # (Auto) Immature Gran # (Auto) Absolute Nucleated RBC Nucleated RBC % (auto) Sodium Potassium Chloride Carbon Dioxide Anion Gap BUN Creatinine Est Cr Clr Drug Dosing Est GFR ( Amer) Est GFR (Non-Af Amer) BUN/Creatinine Ratio Glucose Osmolality 271 L Calcium Phosphorus Magnesium Total Bilirubin Direct Bilirubin AST ALT Alkaline Phosphatase Troponin I High Sens Total Protein Albumin Globulin Albumin/Globulin Ratio Lipase TSH Urine Color Yellow Urine Appearance Turbid A Urine pH 8.0 H Ur Specific Roby 1.015 Urine Protein Negative Urine Glucose (UA) Negative Urine Ketones Negative Urine Blood Negative Urine Nitrite Negative Urine Bilirubin Negative Urine Urobilinogen Negative Ur Leukocyte Esterase Negative Urine WBC (Auto) 1-5 Urine RBC (Auto) 0-4 U Hyaline Cast (Auto) 0 U Epithel Cells (Auto) 5-10 H Urine Bacteria (Auto) Negative Urine Osmolality Ur Random Sodium Adenovirus (PCR) Not Detected B. pertussis DNA (PCR) Not Detected B.parapertussis DNA PCR Not Detected C. pneumoniae DNA (PCR) Not Detected Coronavirus OC43 (PCR) Not Detected Coronavirus HKU1 (PCR) Not Detected Coronavirus 229E (PCR) Not Detected SARS-CoV-2 (PCR) Not Detected Coronavirus NL63 (PCR) Not Detected Human Metapneumovir PCR Not Detected Influenza Type A (PCR) Not Detected Influenza Type B (PCR) Not Detected M. pneumoniae (PCR) Not Detected Parainfluenza 1 (PCR) Not Detected Parainfluenza 2 (PCR) Not Detected Parainfluenza 3 (PCR) Not Detected Parainfluenza 4 (PCR) Not Detected RSV (PCR) Not Detected Entero/Rhino (PCR) Not Detected 04/28/23 04/28/23 04/29/23 10:26 10:26 07:00 WBC 7.55 RBC 3.48 L Hgb 10.7 L Hct 31.8 L MCV 91.4 MCH 30.7 MCHC 33.6 RDW Std Deviation 66.9 H RDW Coeff of Ivan 20.0 H Plt Count 149 MPV 9.2 L Immature Gran % (Auto) Neut % (Auto) Lymph % (Auto) [place] % (Auto) Eos % (Auto) Baso % (Auto) Neut # (Auto) Lymph # (Auto) [place] # (Auto) Eos # (Auto) Baso # (Auto) Immature Gran # (Auto) Absolute Nucleated RBC Nucleated RBC % (auto) Sodium Potassium Chloride Carbon Dioxide Anion Gap BUN Creatinine Est Cr Clr Drug Dosing Est GFR ( Amer) Est GFR (Non-Af Amer) BUN/Creatinine Ratio Glucose Osmolality Calcium Phosphorus Magnesium Total Bilirubin Direct Bilirubin AST ALT Alkaline Phosphatase Troponin I High Sens Total Protein Albumin Globulin Albumin/Globulin Ratio Lipase TSH Urine Color Urine Appearance Urine pH Ur Specific Roby Urine Protein Urine Glucose (UA) Urine Ketones Urine Blood Urine Nitrite Urine Bilirubin Urine Urobilinogen Ur Leukocyte Esterase Urine WBC (Auto) Urine RBC (Auto) U Hyaline Cast (Auto) U Epithel Cells (Auto) Urine Bacteria (Auto) Urine Osmolality 507 Ur Random Sodium 93 Adenovirus (PCR) B. pertussis DNA (PCR) B.parapertussis DNA PCR C. pneumoniae DNA (PCR) Coronavirus OC43 (PCR) Coronavirus HKU1 (PCR) Coronavirus 229E (PCR) SARS-CoV-2 (PCR) Coronavirus NL63 (PCR) Human Metapneumovir PCR Influenza Type A (PCR) Influenza Type B (PCR) M. pneumoniae (PCR) Parainfluenza 1 (PCR) Parainfluenza 2 (PCR) Parainfluenza 3 (PCR) Parainfluenza 4 (PCR) RSV (PCR) Entero/Rhino (PCR) 04/29/23 07:00 WBC RBC Hgb Hct MCV MCH MCHC RDW Std Deviation RDW Coeff of Ivan Plt Count MPV Immature Gran % (Auto) Neut % (Auto) Lymph % (Auto) [place] % (Auto) Eos % (Auto) Baso % (Auto) Neut # (Auto) Lymph # (Auto) [place] # (Auto) Eos # (Auto) Baso # (Auto) Immature Gran # (Auto) Absolute Nucleated RBC Nucleated RBC % (auto) Sodium 131 L Potassium 4.3 Chloride 98 Carbon Dioxide 30 Anion Gap 3 BUN 15 Creatinine 0.85 Est Cr Clr Drug Dosing 83.3 Est GFR ( Amer) 100.2 Est GFR (Non-Af Amer) 86.4 BUN/Creatinine Ratio 17.6 Glucose 113 H Osmolality Calcium 8.4 L Phosphorus Magnesium Total Bilirubin 1.0 D Direct Bilirubin AST 11 L ALT 12 Alkaline Phosphatase 50 Troponin I High Sens Total Protein 5.6 L Albumin 3.1 L Globulin 2.5 Albumin/Globulin Ratio 1.2 Lipase TSH Urine Color Urine Appearance Urine pH Ur Specific Roby Urine Protein Urine Glucose (UA) Urine Ketones Urine Blood Urine Nitrite Urine Bilirubin Urine Urobilinogen Ur Leukocyte Esterase Urine WBC (Auto) Urine RBC (Auto) U Hyaline Cast (Auto) U Epithel Cells (Auto) Urine Bacteria (Auto) Urine Osmolality Ur Random Sodium Adenovirus (PCR) B. pertussis DNA (PCR) B.parapertussis DNA PCR C. pneumoniae DNA (PCR) Coronavirus OC43 (PCR) Coronavirus HKU1 (PCR) Coronavirus 229E (PCR) SARS-CoV-2 (PCR) Coronavirus NL63 (PCR) Human Metapneumovir PCR Influenza Type A (PCR) Influenza Type B (PCR) M. pneumoniae (PCR) Parainfluenza 1 (PCR) Parainfluenza 2 (PCR) Parainfluenza 3 (PCR) Parainfluenza 4 (PCR) RSV (PCR) Entero/Rhino (PCR) Diagnostic Findings Chest X-Ray 04/28/23 09:18 XR chest 1V portable HISTORY: dizziness COMPARISON: Chest 03/18/2023. FINDINGS: There are low lung volumes. No pneumothorax. No pleural effusions. There is mild enlargement of the cardiac silhouette. This may be due to the low lung volumes. No focal lung consolidations to suggest a pneumonia. No evidence for pulmonary edema. IMPRESSION: Mild enlargement of the cardiac silhouette. This may be due to the low lung volumes and AP portable technique. Otherwise, no acute process within the chest. ACT 112: Negative or not required by law. Electronically signed by: Samuel Webster M.D. 04/28/2023 10:00 AM Abdomen/Pelvis CT 04/28/23 11:[address] WITH IV CONTRAST CT DOSE: 1247.57 mGy.cm HISTORY: Nausea. Vomiting., dizziness, leukemia TECHNIQUE: Multiaxial CT images of the abdomen and pelvis were performed following the use of intravenous contrast. A dose lowering technique was utilized adhering to the principles of ALARA. COMPARISON STUDY: None. FINDINGS: There is a 5 mm subpleural nodule within the right middle lobe on image 20. Groundglass densities at the lung bases favor mild dependent change. Small focus of subcutaneous gas within the left lower quadrant abdominal wall favors prior medication injection. No pneumoperitoneum. No pneumatosis. No suspicious lytic or blastic osseous lesions. Severe degenerative disc disease at L4-5. Small fat-containing umbilical and supraumbilical hernias are noted. There is a 2.8 cm cyst within the left hepatic lobe. The main portal vein is patent. The gallbladder, pancreas, spleen, and adrenal glands are unremarkable. A 5 mm hypodense lesion within the right kidney is technically too small to characterize but statistically represents a cyst. Normal left kidney. No hydronephrosis. Calcified plaque within the normal caliber abdominal aorta. No retroperitoneal or pelvic lymphadenopathy. The bladder is decompressed resulting in suboptimal evaluation. However, no definite bladder wall thickening. No pelvic free fluid. Colonic diverticulosis. No evidence for acute diverticulitis. No bowel wall thickening or obstruction. Normal appendix. IMPRESSION: 1. No bowel wall thickening or obstruction. 2. Normal appendix. 3. Colonic diverticulosis. No evidence for acute diverticulitis. 4. A 5 mm right middle lobe pulmonary nodule. Please refer to the chart below for recommended follow-up. 5. Additional findings as described above. Please refer to below summary of Fleischner criteria recommendations for follow- up of incidental CT nodules (Kwesi Jenkins, Guidelines for management of small pulmonary nodules detected on CT scans: A statement from the Fleischner Society, Radiology 237: [phone].) SOLID NODULES Solitary nodule size: <6 mm * Low risk patients: no follow-up needed * high risk patients: optional CT at 12 months Solitary nodule size: 6-8 mm * Low risk patients: follow-up at 6-12 months, then consider further follow-up at 18-24 months * high risk patients: initial follow-up CT at 6-12 months and then at 18-24 months if no change Solitary nodule size: >8 mm * either low or high risk patients - consider follow-up CT at 3 months, and/or CT-PET, and/or biopsy Multiple nodules size: <6 mm * Low risk patients: no routine follow-up * high risk patients: optional CT at 12 months Multiple nodules size: 6-8 mm * Low risk patients: follow-up at 3-6 months, then consider further follow-up at 18-24 months * high risk patients: follow-up at 3-6 months, then at 18-24 months if no change Multiple nodules size: >8 mm * Low risk patients: follow-up at 3-6 months, then consider further follow-up at 18-24 months * high risk patients: follow-up at 3-6 months, then at 18-24 months if no change Note: newly detected indeterminate nodule in persons 35 years of age or older. * Low risk patients: minimal or absent history of smoking and/or other known risk factors * high risk patients: history of smoking or of other known risk factors (e.g. first degree relative with lung cancer, or exposure to asbestos, radon, uranium) * if a nodule up to 8 mm is partly solid or is ground glass further follow-up is required after 24 months to exclude possible slow growing adenocarcinoma (TONY) SUBSOLID NODULES Solitary pure ground-glass nodule * nodule size <6 mm - no CT follow-up required * nodule size >=6 mm - follow-up CT at 6-12 months, then every 2 years until 5 years Solitary part-solid nodule * nodule size <6 mm - no CT follow-up required * nodule size >=6 mm - follow-up CT at 3-6 months. If unchanged, and solid component remains <6 mm, then annual follow-up for 5 years Multiple subsolid nodules * nodule size <6 mm - follow-up CT at 3-6 months, consider further follow-up at 2 and 4 years if stable * nodule size >=6 mm - follow-up CT at 3-6 months, subsequent management based on the most suspicious nodule(s) ACT 112: Positive. There are findings on this exam that require communication between the performing entity and the patient following Patient Test Result Information Act ([place] Act 112) guidelines. Electronically signed by: Samuel Webster M.D. 04/28/2023 11:58 AM PG Care Time/CCT Total # of Minutes Spent Total Time Spent with Patient: Total time spent is greater than 50% in coordination of care (as documented) at patient's floor/unit and/or counseling patient: Coding Level of Care Code 56303 IN/OBS CONSULT LVL 2,35M Diagnoses MDS (myelodysplastic syndrome) D46.9 Dizziness R42
[2023-04-29] MEDS: ACYCLOVIR 400 MG TAB PO SCH (08:09)
[2023-04-29 08:11] LABS: Basophils # (auto) 0.01 K/uL (0-0.2); Basophils % (auto) 0.1 %; Eosinophils # (auto) 0.07 K/uL (0-0.50); Eosinophils % (auto) 0.9 %; Immature Granulocytes # (auto) 0.35 K/uL (0.01-0.20); Immature Granulocytes % (auto) 4.6 %; Lymphocytes # (auto) 1.39 K/uL (1.2-3.4); Lymphocytes % (auto) 18.4 %; Neutrophils # (auto) 5.43 K/uL (1.40-6.50)
[2023-04-29] MEDS ORDERED: ATORVASTATIN 40 MG TAB PO SCH (09:00)
[2023-04-29] MEDS ORDERED: MULTIVITAMIN TAB PO SCH (09:00)
[2023-04-29] MEDS ORDERED: FERROUS SULFATE 325 MG TAB PO SCH (09:00)
[2023-04-29] MEDS ORDERED: lisinopril 20 MG TAB PO SCH (09:00)
[2023-04-29] MEDS ORDERED: CALCIUM CARBONATE 1250MG TAB PO SCH (09:00)
[2023-04-29] MEDS ORDERED: ASCORBIC ACID 500 MG TAB PO SCH (09:00)
[2023-04-29] MEDS ORDERED: CHOLECALCIFEROL 1,000 UNITS 25 MCG TAB PO SCH (09:00)
--- NOTE | 2023-04-29 10:04 | Electrocardiogram Report ---
Test Reason : Blood Pressure : / mmHG Vent. Rate : 068 BPM Atrial Rate : 068 BPM P-R Int : 192 ms QRS Dur : 098 ms QT Int : 410 ms P-R-T Axes : 000 000 032 degrees QTc Int : 435 ms Normal sinus rhythm Cannot rule out Anteroseptal infarct , age undetermined Abnormal ECG No previous ECGs available Confirmed by Jimi Hopper ([id number]) on 04/29/2023 10:04:37 AM Referred By: REFERRED SELF Confirmed By:Jimi Hopper
--- NOTE | 2023-04-29 14:55 | Discharge Summary ---
Date of Service April 29, 2023 Admission HPI Per Admitting Provider Mr. 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 He presented due to dizziness and malaise. He is found to have leukocytosis with a left shift (no clear source of infection), and hyponatremia. History is per patient and at bedside. Last chemotherapy treatment was Saturday. Pt typically develops symptoms about 3 days after chemo. The symptoms he is experiencing now are consistent with post chemo, but more severe and occurring sooner than usual. Symptoms consist of dizziness, diffuse aches and pains throughout his joints and muscles, fatigue, malaise, generalized weakness, and feeling "foggy headed." He did have chills last night, and today vomited up his antihypertensives. Appetite remained good up until yesterday, he hasn't eaten anything since then. Dizziness was worse today, to the point he went down on both knees in the bathroom causing his to be alarmed. He further endorses neck pain and stiffness. He denies photophobia, fever, CP, sob, cough, congestion, sore throat, abdominal pain (other than from injections), diarrhea, and dysuria. He has not had n/v other than the one episode with his morning meds today. ED course: VSS b/w notable for wbc 12.21, h/h 11.9/35.3, Na 127, Cl 92, serum osm 271, TB 1.8. TSH, lipase, Mg, and Phos wnl. Respiratory pathogen panel is negative. UA + turbid but otherwise negative. CT A/P with contrast neg for acute pathology, notable for 2.8 cm cyst in the left hepatic lobe Pt was given IVF, zofran, and Famotidine. [facility] Admission Exam Per Admitting Provider General:NAD, non-toxic appearing, sleepy Head:NC AT Eyes: anicteric sclera, no conjunctival injection Nose:nares patent Mouth:dry Neck:supple, trachea midline CV:RRR S1 S2 Pulm:CTA b/l Abd/GI:+ BS, soft, NT, ND, no guarding :no pratt Ext:no pretibial edema MSK:normal bulk and tone Neuro:somnolent, oriented, moving all 4 extremities symmetrically, no focal deficits Psych:pleasant mood and affect Skin:visible skin is warm, dry, and without rash. Pt not fully undressed for exam. Principal Diagnosis History of myelodysplastic syndrome Weakness and dizziness/chemotherapy related toxicity Discharge Exam GENERAL: Alert and oriented x3. NAD, on RA. HEENT: No pallor, no icterus. Pupils equal, round and reactive to light. Oral mucosa moist. NECK: No JVD, no neck masses. HEART: S1 and S2 heard. Regular rate and rhythm. No murmur, no gallop. RESPIRATORY SYSTEM: Normal AP diameter. No accessory muscle use. No wheezing, no crackles. ABDOMEN: Soft, bowel sounds present, nontender, no distention. CENTRAL NERVOUS SYSTEM: No facial droop. Speech is clear. Obeys simple commands. Moves extremities. EXTREMITIES: No edema, no erythema seen. Discharge Data Allergies Allergy/AdvReac Type Severity Reaction Status Date / Time No Known Drug Allergies Allergy Verified 11/21/22 09:48 Consultations 04/28/23 13:04 ED Decision to Admit Stat 04/28/23 16:39 Consult Hematology Routine Ordered Studies 04/28/23 11:23 CT abd pelvis IV con only Stat Hospital Course (1) Dizziness: Plan Patient came in with weakness and dizziness after chemotherapy dose for his myelodysplastic syndrome. Leukocytosis was noted, no fever or source of infection. Leukocytosis trended down. Patient reports feeling better, no further weakness or dizziness, reports being back to baseline and would like to go home. Hyponatremia improved. Patient advised to continue with high solute diet and low-sodium diet. Oncology has evaluated, appreciate recommendation. Orthostatic vitals negative. Patient hemodynamically stable and being discharged home with following instruction at the point of discharge: Follow-up with your primary care physician within a week time and likely you will need labs CBC/CMP/magnesium/phosphorus. Follow-up with your hematology doctor in 1 to 2 weeks time upon discharge. Maintain low-sodium diet, increase protein intake in the diet. For your right middle lobe nodule [5 mm], you will likely need a follow-up CT scan of the chest in 6 to 12 months time. Coordinate with the PCP or oncology office for the test. Take your medications as prescribed. Please make sure that you are able to get your medications today by calling your pharmacy before you leave the hospital so that your treatment continuity is not broken. Home Health Attestation I certify that this patient is under my care and that I, or a physicians executive assistant to general counsel working with me, had a face to-face encounter that meets the home health [id number] encounter requirements with this patient. The encounter with the patient was in whole, or in part, for the following medical condition, which is the primary reason for home health care (list medical condition): I certify that, based on my findings, the following services are medically necessary home health services: My clinical findings support the need for the above services because: Further, I certify that my clinical findings support that this patient is homebound (i.e. absences from home require considerable and taxing effort and are for medical reasons or bahai services or infrequently or of short duration when for other reasons) because: Certification for Home Health Services: Based on the above findings, I certify that this patient is confined to the home and needs intermittent halfway care, physical therapy and/or speech therapy or continues to need occupational therapy. The patient is under my care, and I have initiated the establishment of the plan of care. This patient will be followed by a physician who will periodically review the plan of care. Total Time Total Time Spent Total Time Spent (In Minutes): 45 Discharge Plan Discharge Items Patient Disposition: Home - Self-Care Reason For Visit: DIZZINESS Discharge Diagnosis: History of myelodysplastic syndrome Weakness and dizziness/chemotherapy related toxicity Activity: Resume your previous activity Non-emergency contact: Primary Care Provider Call non-emergency contact if: you have any medication questions, your symptoms worsen and your temperature is above 101 Follow-up/Referrals: Patti Wagner CRNP [Primary Care Provider] - Diet: Regular Addtl Attending Provider Instructions: Follow-up with your primary care physician within a week time and likely you will need labs CBC/CMP/magnesium/phosphorus. Follow-up with your hematology doctor in 1 to 2 weeks time upon discharge. Maintain low-sodium diet, increase protein intake in the diet. For your right middle lobe nodule [5 mm], you will likely need a follow-up CT scan of the chest in 6 to 12 months time. Coordinate with the PCP or oncology office for the test. Take your medications as prescribed. Please make sure that you are able to get your medications today by calling your pharmacy before you leave the hospital so that your treatment continuity is not broken. Pending Studies at Discharge: No Stand-Alone Forms: My [facility], Smoking Cessation Medications and DC Order Prescriptions: Continued multivitamin Tablet 1 tab PO DAILY atorvastatin 40 mg Tablet 40 mg PO DAILY lisinopril 20 mg Tablet 20 mg PO DAILY travoprost [Travatan Z] 0.004 % Drops 1 drp OPHTHALMIC (EYE) PM calcium carbonate [Calcium 600] 600 mg calcium (1,500 mg) Tablet 600 mg PO DAILY ascorbic acid (vitamin C) [Vitamin C] 500 mg Tablet 500 mg PO DAILY vitamin B complex Capsule 1 cap PO DAILY cholecalciferol (vitamin D3) [Vitamin D3] 25 mcg (1,000 unit) Capsule 25 mcg PO DAILY ferrous sulfate 27 mg iron Tablet 27 mg PO DAILY ondansetron HCl 8 mg tablet See Rx Instructions .ROUTE .COMPLEX PRN (Reason: Nausea) Rx Instructions: as directed prochlorperazine maleate 10 mg tablet See Rx Instructions .ROUTE .COMPLEX PRN (Reason: Nausea) Rx Instructions: as directed acyclovir 400 mg tablet 400 mg PO BID PRN (Reason: other) dexamethasone 4 mg tablet See Rx Instructions .ROUTE .COMPLEX Rx Instructions: 2 tabs daily 30-69 mins prior to chemo injection Discharge Orders: Discharge Order (Routine); Ordered 04/29/23 Ordered By: Elba Sheffield Admission Data Admit Date/Time: 04/28/23 14:05 Attending Provider: Elba Sheffield Admit Provider: Aubrie Lee Primary Care Provider: Patti Wagner Other Providers: Aubrie Lee ; Erick Briggs
== END 2023-04-29 16:24 | disposition home or self-care (01) ==
LOC: ED 09:01 → EDINP 09:01 → SUATTDRO 14:05 → EDINP 16:39 → 3N 17:10